=== PATIENT | female | born 1975 | race Caucasian/White ===

== ENCOUNTER 2016-07-06 21:22 | Emergency (ER) | payer OTHER ==
[~2016-07-06] VITALS: Ht 152.4 cm; Wt 96.4 kg
[~2016-07-06 21:22] MED LIST: ALBU1AER9 INH; BUPR100T8 PO; BUPR200T2 PO; DTR5 PO; GLC/500 PO; HYDR1CAP85 PO; IBUP-1428 PO; METO50TA16 PO; MOME200A INH; OXCA300T2 PO; TRAZ50TA35 PO
[2016-07-06 21:28] VITALS: TEMP 36.8; Ht 152.4 cm; Wt 96.4 kg
[2016-07-06] MEDS ORDERED: VNTHFA/IN INH (22:48)
[2016-07-06] MEDS ORDERED: NAPR-1169 PO (23:30)
--- NOTE | 2016-07-06 23:31 | EMERGENCY ROOM VISIT NOTE ---
ED Visit Note First contact with patient: 22:19 CHIEF COMPLAINT: Shoulder pain HISTORY OF PRESENT ILLNESS: This 40-year-old female patient presents to the emergency department ambulatory complaining of pain in the right shoulder which has been gradually increasing over the past 2 weeks. She states that the pain began to radiate toward her neck last night. There is limitation of motion of the arm because of the pain. The pain is moderate, constant and increases with motion of the hand and arm. The patient states the pain is sharp and 7/10. The patient has taken no medications for relief of the pain. No previous significant previous shoulder disease or injury. No numbness or tingling. No neck or back pain. No chest pain or shortness of breath. No abdominal pain or nausea/vomiting. No cough. REVIEW OF SYSTEMS: A 6 system review of systems was performed with positives and pertinent negatives in the HPI. ALLERGIES: Azithromycin, propoxyphene MEDICATIONS: See med list PMH: Diabetes, asthma SOCIAL HISTORY: The patient lives locally with family. Nonsmoker. PHYSICAL EXAM: Vital Signs: Reviewed nurse's notes, vital signs stable. GENERAL : This is a 40-year-old female, in no acute distress, but appears to be in pain , well-developed, well-nourished. MUSCULOSKELETAL: There is in no deformity in the contour of the right shoulder and there are no aureliano deformities noted. There is no sulcus sign. There is tenderness over the superior shoulder and right trapezius muscle. The patient's range of motion is for. Supraspinatus strength 5/5. There is no clavicle tenderness. No tenderness of the humerus, elbow, wrist, or hand. Fuse Spooler strength 5/5. Radial pulse 2+. NECK: No tenderness to palpation over the cervical spine. HEART: Regular rate and rhythm without murmurs gallops or rubs. LUNGS: Clear to auscultation bilaterally without wheezes, rales or rhonchi. No accessory muscle use. No retractions. NEURO: The patient is alert and oriented to person, place, and time. Normal sensation to light and sharp touch. Capillary refill less than 2 seconds. EMERGENCY DEPARTMENT COURSE: I examined the patient. An X-ray of the right shoulder was reviewed by myself and radiology and shows no acute findings. Conservative measures were discussed. The patient will follow-up with her primary care provider or orthopedics for further evaluation of her shoulder pain. She verbalized understanding of my assessment and treatment plan and was discharged home in good condition. DIAGNOSIS: Shoulder pain Problem List Medical Problems: (1) Depression Status: Chronic (2) Headache Status: Resolved (3) HTN (hypertension) Status: Chronic (4) HTN (hypertension) Status: Resolved (5) Pneumonia Status: Chronic Current/Historical Medications Scheduled Bupropion (Wellbutrin Sr), 200 MG PO QAM Bupropion (Wellbutrin Sr), 100 MG PO DAILY Hydroxyzine Pamoate (Vistaril), 25 MG PO TID Metformin Hcl (Glucophage), 1,000 MG PO AMPM Metoprolol Tartrate (Lopressor) (Lopressor), 50 MG PO BID Naproxen (Naprosyn), 500 MG PO DAILY Oxcarbazepine (Trileptal), 300 MG PO BID Oxybutynin Chloride (Oxybutynin Chloride), 5 MG PO DAILY Trazodone Hcl (Trazodone), 100 MG PO HS Scheduled PRN Albuterol Hfa (Ventolin Hfa), 2 PUFFS INH Q4 PRN for Shortness of Breath Ibuprofen (Motrin), 800 MG PO Q8 PRN for Headache Mometasone Furoate-Formoterol (Dulera 200/5 Mcg), 2 PUFFS INH BID PRN for Shortness of Breath Allergies Coded Allergies: Azithromycin (Verified Allergy, Unknown, 05/12/16) Propoxyphene (Verified Allergy, Unknown, 05/12/16) Vital Signs Date Time Temp Pulse Resp B/P Pulse Ox O2 Delivery O2 Flow Rate FiO2 07/06/16 23:42 96 18 144/107 98 07/06/16 21:28 36.8 105 18 148/104 96 Room Air Departure Information Impression Primary Impression: Right shoulder pain Dispostion Home / Self-Care Condition GOOD Prescriptions Naproxen (Naprosyn) 500 Mg Tab 500 MG PO DAILY for 14 Days, #14 TAB Prov: Ping Shipman .GUTIERREZ 07/06/16 Referrals Warren White M.D. (PCP) Patient Instructions My [facility] Additional Instructions You have been treated in the Emergency Department for Shoulder Pain. Take the Naprosyn as prescribed. For pain control, you can use the following [id number] medicines (if >12 yo): - Regular strength (325mg/tab) Tylenol (acetaminophen) 2 tabs every 4-6 hours as needed. Do not exceed 12 tablets in a 24 hour period. Avoid taking more than 4 grams (4000 mg) of Tylenol per day. This includes any other sources of acetaminophen you may take on a regular basis. If this is a recent injury (<24 hrs), ice can be applied to the area of pain for the first 3 days to help decrease pain and inflammation. Follow-up with your primary care provider in 1-2 weeks. Return to the Emergency Department if your current symptoms worsen despite treatment course outlined above, or if you develop any of the following symptoms : intractable pain despite aforementioned treatment course or new onset of numbness or tingling of the arm. Problem Qualifiers Primary Impression: Right shoulder pain Chronicity: chronic Qualified Codes: M25.511 - Pain in right shoulder; G89.29 - Other chronic pain
[2016-07-06 23:42] VITALS: BP 144/107; PULSE 96; O2SAT 98
--- NOTE | 2016-07-07 06:45 | DIAGNOSTIC IMAGING REPORT ---
RIGHT SHOULDER MIN 2 VIEWS ROUTINE CLINICAL HISTORY: Right shoulder pain. COMPARISON: None FINDINGS: Alignment of the right shoulder is anatomic. There is no acute fracture or suspicious osseous lesion. There is mild AC joint arthrosis. IMPRESSION: 1. Mild right AC joint arthrosis. 2. No fracture or dislocation of the right shoulder. Electronically signed by: Chintan Cedillo M.D. 07/07/2016 6:44 AM Dictated Date/Time: 07/07/2016 6:44 AM
== END 2016-07-06 23:43 | disposition home or self-care (01) ==
LOC: C.EDB 21:23 → C.EDD 23:43
DX: M25.511 Pain in right shoulder (principal); E11.9 Type 2 diabetes mellitus without complications; I10 Essential (primary) hypertension; J45.909 Unspecified asthma, uncomplicated; F32.9 Major depressive disorder, single episode, unspecified; Z79.84 Long term (current) use of oral hypoglycemic drugs; Z79.899 Other long term (current) drug therapy; Z88.1 Allergy status to other antibiotic agents; Z88.8 Allergy status to other drugs, medicaments and biological substances

== ENCOUNTER → 2016-07-15 | Outpatient (CLI) | payer OTHER ==
[~2016-07-15] MED LIST changes: -ALBU1AER9 INH; +CYCL10TA6 PO; +LEVO-366 PO; +NAPR-1169 PO; +PRED20TA2 PO; +TRAZ100T29 PO; +VNTHFA/IN INH
--- NOTE | 2016-07-15 13:06 | DIAGNOSTIC IMAGING REPORT ---
RIGHT LOWER EXTREMITY VENOUS DOPPLER HISTORY: Right leg pain and swelling. COMPARISON STUDY: None. FINDINGS: There is normal compressibility, flow, and augmentation within the right lower extremity deep venous system. IMPRESSION: No DVT within the right lower extremity Electronically signed by: Neto Wolf M.D. 07/15/2016 1:04 PM Dictated Date/Time: 07/15/2016 1:04 PM
== END | disposition home or self-care (01) ==
LOC: C.ULTR 12:20
PROVIDERS: ATTEND Internal Medicine
DX: M79.89 Other specified soft tissue disorders (principal)

== ENCOUNTER → 2016-07-26 | Outpatient (CLI) | payer OTHER ==
--- NOTE | 2016-07-26 14:08 | DIAGNOSTIC IMAGING REPORT ---
NUCLEAR BONE SCAN OF THE ANKLES CLINICAL HISTORY: Right ankle pain. COMPARISON STUDY: Radiographs of the right ankle dated 05/12/2016. TECHNIQUE: Nuclear bone scan of the ankles is performed at 3 following the IV administration of 25.6 mCi of technetium 99m MDP. Static images were acquired in multiple obliquities. FINDINGS: There is nonspecific activity identified in both ankles, right greater than left. This may be related to degenerative change. No focally abnormal activity is seen to suggest fracture. IMPRESSION: Nonspecific activity is identified in both ankles, right greater than left. See above. Electronically signed by: Ivan Burgos M.D. 07/26/2016 2:02 PM Dictated Date/Time: 07/26/2016 1:58 PM
== END | disposition home or self-care (01) ==
LOC: C.NUCL 10:00
PROVIDERS: ATTEND Internal Medicine
DX: M25.571 Pain in right ankle and joints of right foot (principal)

== ENCOUNTER 2016-08-17 16:58 | Emergency (ER) | payer OTHER ==
[~2016-08-17] VITALS: Ht 152.4 cm; Wt 91.0 kg
[~2016-08-17 16:58] MED LIST changes: -CYCL10TA6 PO; -LEVO-366 PO; -NAPR-1169 PO; -PRED20TA2 PO; -TRAZ100T29 PO
[2016-08-17 17:08] VITALS: BP 168/116; PULSE 95; TEMP 36.4; O2SAT 98; Ht 152.4 cm; Wt 91.0 kg
[2016-08-17] MEDS ORDERED: NAPR-1169 PO (17:10)
--- NOTE | 2016-08-17 17:32 | DIAGNOSTIC IMAGING REPORT ---
LEFT ANKLE 3 VIEWS HISTORY: l ANKLE INJURY/PAIN COMPARISON: None. FINDINGS: There is no fracture or dislocation. Lateral soft tissue swelling. Plantar heel spur. No radiopaque foreign bodies. IMPRESSION: No fractures. Electronically signed by: Neto Wolf M.D. 08/17/2016 5:30 PM Dictated Date/Time: 08/17/2016 5:30 PM
--- NOTE | 2016-08-17 17:44 | EMERGENCY ROOM VISIT NOTE ---
History First contact with patient: 17:03 Chief Complaint: ANKLE PAIN Stated Complaint: ANKLE PAIN History of Present Illness The patient is a 40 year old female who presents to the Emergency Room with complaints of left ankle injury and right knee abrasion after she twisted her ankle and fell this injury happened less than one hour prior to arrival. The patient presents to the emergency department via ambulance for evaluation. She rates her discomfort an 8 out of 10 with weightbearing. She reports a recent right ankle sprain. She currently denies any pain extending into the left foot or leg. She denies any paresthesias or numbness the left foot or toes. She reports scraping her right knee as well, but denies any right knee pain with ambulation. Tetanus immunization is up-to-date. Review of Systems 10 system review was performed and was negative except for pertinent positives and negatives as indicated in history of present illness Past Medical/Surgical History Medical Problems: (1) Depression (2) Headache (3) HTN (hypertension) (4) HTN (hypertension) (5) Pneumonia Family History Hypertension Seizures Social History Smoking Status: Former Smoker Alcohol Use: none Marital Status: Housing Status: lives with family Occupation Status: disabled Current/Historical Medications Scheduled Bupropion (Wellbutrin Sr), 200 MG PO QAM Bupropion (Wellbutrin Sr), 100 MG PO QAM Hydroxyzine Pamoate (Vistaril), 25 MG PO TID Metformin Hcl (Glucophage), 1,000 MG PO AMPM Metoprolol Tartrate (Lopressor) (Lopressor), 50 MG PO BID Naproxen (Naprosyn), 500 MG PO BID Oxcarbazepine (Trileptal), 300 MG PO BID Oxybutynin Chloride (Oxybutynin Chloride), 5 MG PO DAILY Trazodone Hcl (Trazodone), 100 MG PO HS Scheduled PRN Albuterol Hfa (Ventolin Hfa), 2 PUFFS INH Q4 PRN for Shortness of Breath Ibuprofen (Motrin), 800 MG PO Q8 PRN for Headache Mometasone Furoate-Formoterol (Dulera 200/5 Mcg), 2 PUFFS INH BID PRN for Shortness of Breath Allergies Coded Allergies: Azithromycin (Verified Allergy, Unknown, 08/17/16) Propoxyphene (Verified Allergy, Unknown, 3/21/17) Physical Exam Vital Signs Date Time Temp Pulse Resp B/P Pulse Ox O2 Delivery O2 Flow Rate FiO2 08/17/16 17:08 36.4 95 20 168/116 98 Room Air Physical Exam CONSTITUTIONAL: Healthy and well nourished. Alert and oriented X 3 with positive affect. She does not appear in any acute distress. HEENT: Normocephalic, atraumatic. Pupils equal, round and reactive. NECK: Full active range of motion without discomfort. RESPIRATORY: Clear to auscultation bilaterally with no wheezing, crackles, rhonchi or stridor. CARDIOVASCULAR: Regular rate and rhythm with no murmurs, rubs or gallops. MUSCULOSKELETAL: Examination of the left ankle shows minimal lateral edema without ecchymosis or skin wounds. She is tender over the lateral malleolus and ligaments. Minimal tenderness over the deltoid ligament. Negative anterior draw. No focal tenderness over the dorsal midfoot, metatarsals, phalanges, calcaneus or Achilles tendon. Pedal pulses are intact. INTEGUMENTARY: No rash or other significant dermatologic conditions noted. NEUROLOGIC: Left foot and toes are sensory intact. Medical Decision & Procedures ER Provider Diagnostic Interpretation: My interpretation of left ankle x-rays does not show any acute fracture, dislocation or ankle mortise asymmetry. Radiologist report is as follows: LEFT ANKLE 3 VIEWS HISTORY: l ANKLE INJURY/PAIN COMPARISON: None. FINDINGS: There is no fracture or dislocation. Lateral soft tissue swelling. Plantar heel spur. No radiopaque foreign bodies. IMPRESSION: No fractures. ED Course Patient history and physical exam were performed. Nurse's notes were reviewed. X-rays of the left ankle were normal. The patient was fitted with crutches. She was encouraged to intermittently apply ice to the ankle, and perform range of motion exercises to prevent stiffness. Ibuprofen and/or Tylenol as needed for pain. She was also instructed to keep her right knee wound clean and covered with an antibiotic ointment and dressing until it heals. The patient was happy with plan of care, voiced understanding of all discharge instructions , and rated her pain a 3 out of 10 at the conclusion of my exam. Medical Decision Impression Primary Impression: Left ankle sprain Additional Impression: Abrasion, right knee, initial encounter Departure Information Dispostion Home / Self-Care Forms HOME CARE DOCUMENTATION FORM, IMPORTANT VISIT INFORMATION Patient Instructions My [facility] Additional Instructions Intermittently apply ice and elevate ankle for swelling and pain. Perform range of motion exercises to prevent stiffness. Use crutches as needed - no limping. Ibuprofen or Tylenol as needed for pain. Follow-up with orthopedics if symptoms are not improving within the next week. Problem Qualifiers Primary Impression: Left ankle sprain Encounter type: initial encounter Involved ligament of ankle: unspecified ligament Qualified Codes: S93.402A - Sprain of unspecified ligament of left ankle, initial encounter
== END 2016-08-17 17:35 | disposition home or self-care (01) ==
LOC: EDBD 16:58 → C.EDD 17:01
DX: S93.402A Sprain of unspecified ligament of left ankle, initial encounter (principal); S80.211A Abrasion, right knee, initial encounter; W19.XXXA Unspecified fall, initial encounter; I10 Essential (primary) hypertension; Z82.49 Family history of ischemic heart disease and other diseases of the circulatory system; Z82.3 Family history of stroke; Z87.891 Personal history of nicotine dependence; F32.9 Major depressive disorder, single episode, unspecified

== ENCOUNTER 2017-01-10 15:47 | Emergency (ER) | payer OTHER ==
[~2017-01-10] VITALS: Ht 152.4 cm; Wt 100.5 kg
[~2017-01-10 15:47] MED LIST changes: +NAPR-1169 PO
[2017-01-10 15:51] VITALS: TEMP 36.8; Ht 152.4 cm; Wt 100.5 kg
[2017-01-10] MEDS ORDERED: ACETAMINOPHEN 500 MG TAB PO STA (16:06)
--- NOTE | 2017-01-10 16:35 | DIAGNOSTIC IMAGING REPORT ---
LEFT RIBS UNILATERAL WITH PA CHEST (5 views) CLINICAL HISTORY: Left rib pain COMPARISON STUDY: No previous studies for comparison. FINDINGS: The erect chest reveals a calcified granuloma within the right mid to lower lung zone. There is no pneumothorax. There is no focal pulmonary consolidation. No left-sided rib fractures are visualized. No destructive lesions are visualized on conventional radiographic imaging. IMPRESSION: 1. No evidence of pneumothorax 2. No left-sided rib fractures identified 3. No evidence of focal pulmonary consolidation Electronically signed by: Js Hauser M.D. 01/10/2017 4:33 PM Dictated Date/Time: 01/10/2017 4:32 PM
[2017-01-10 16:45] LABS: MANUAL MICROSCOPIC REQUIRED? NO; REVIEW REQ? NO; URINE APPEARANCE TURBID (CLEAR); URINE BILIRUBIN NEG (NEG); URINE COLOR YELLOW; URINE EPITHELIAL CELL AUTO >30 /lpf (0-5); URINE NITRITE NEG (NEG); URINE SPECIFIC GRAVITY 1.024 (1.000-1.030); UROBILINOGEN NEG (NEG); ZZUR CULT IF INDIC CLEAN CATCH YES
[2017-01-10] MEDS ORDERED: CYCL10TA6 PO (16:59)
--- NOTE | 2017-01-10 16:59 | EMERGENCY ROOM VISIT NOTE ---
History First contact with patient: 15:55 Chief Complaint: FLANK PAIN Stated Complaint: LEFT SIDE OF PAIN AND PAIN IN LEFT ANKLE History of Present Illness The patient is a 41 year old female who presents to the Emergency Room with complaints of left posterior rib pain. The patient states the pain started this morning. She states it hurts worse with deep inspiration. The patient denies any known injury to the area. The patient denies any chest pain or shortness of breath. The patient denies any nausea or vomiting. The patient denies any urinary symptoms of frequency, urgency, dysuria or hematuria. The patient does admit to a history of pyelonephritis. She denies any history of kidney stones. She has not taken anything for pain. The patient also mentioned that she has had chronic left ankle pain for 6 months. She was initially seen here in the emergency room and followed up with Dr. Wallace. She denies any new injury to her ankle. She has not returned to Dr. Wallace for further evaluation. Review of Systems 10 system review was performed and was negative unless stated otherwise history of present illness. Past Medical/Surgical History Medical Problems: (1) Depression (2) Headache (3) HTN (hypertension) (4) HTN (hypertension) (5) Pneumonia Family History Hypertension Seizures Social History Smoking Status: Former Smoker Alcohol Use: none Marital Status: Housing Status: lives with family Occupation Status: disabled Current/Historical Medications Scheduled Bupropion (Wellbutrin Sr), 200 MG PO QAM Bupropion (Wellbutrin Sr), 100 MG PO QAM Hydroxyzine Pamoate (Vistaril), 25 MG PO TID Metformin Hcl (Glucophage), 1,000 MG PO AMPM Metoprolol Tartrate (Lopressor) (Lopressor), 50 MG PO BID Naproxen (Naprosyn), 500 MG PO BID Oxcarbazepine (Trileptal), 300 MG PO BID Oxybutynin Chloride (Oxybutynin Chloride), 5 MG PO DAILY Trazodone Hcl (Trazodone), 100 MG PO HS Scheduled PRN Albuterol Hfa (Ventolin Hfa), 2 PUFFS INH Q4 PRN for Shortness of Breath Ibuprofen (Motrin), 800 MG PO Q8 PRN for Headache Mometasone Furoate-Formoterol (Dulera 200/5 Mcg), 2 PUFFS INH BID PRN for Shortness of Breath Physical Exam Vital Signs Date Time Temp Pulse Resp B/P (MAP) Pulse Ox O2 Delivery O2 Flow Rate FiO2 01/10/17 15:51 36.8 105 18 174/114 95 Room Air Physical Exam GENERAL: 41-year-old obese white female appears in no acute distress. MENTAL Status: Alert and oriented 3. LUNGS: Clear auscultation without wheezes rales or rhonchi. CARDIAC: Regular rate and rhythm without murmur. Pulses is full and equal throughout. CHEST WALL: No gross bony deformity noted. No erythema or edema noted. The patient is tender to palpation over the mid to lower posterior chest wall remainder chest wall is unremarkable. BACK: No CVA tenderness noted. ABDOMEN: Positive bowel sounds all 4 quadrants. Soft, nontender to palpation . Cannot evaluate for organomegaly or masses secondary to patient's size. LEFT ANKLE: No gross bony deformity noted. No erythema or edema noted. No ligament instability noted. Full range of motion. Medical Decision & Procedures ER Provider Diagnostic Interpretation: LEFT RIBS UNILATERAL WITH PA CHEST (5 views) CLINICAL HISTORY: Left rib pain COMPARISON STUDY: No previous studies for comparison. FINDINGS: The erect chest reveals a calcified granuloma within the right mid to lower lung zone. There is no pneumothorax. There is no focal pulmonary consolidation. No left-sided rib fractures are visualized. No destructive lesions are visualized on conventional radiographic imaging. IMPRESSION: 1. No evidence of pneumothorax 2. No left-sided rib fractures identified 3. No evidence of focal pulmonary consolidation Electronically signed by: Js Hauser M.D. 01/10/2017 4:33 PM Dictated Date/Time: 01/10/2017 4:32 PM Laboratory Results Test 01/10/17 16:20 Urine Color YELLOW Urine Appearance TURBID (CLEAR) Urine pH 5.0 (4.5-7.5) Urine Specific [place] 1.024 (1.000-1.030) Urine Protein 1+ (NEG) Urine Glucose (UA) 2+ (NEG) Urine Ketones 1+ (NEG) Urine Occult Blood 3+ (NEG) Urine Nitrite NEG (NEG) Urine Bilirubin NEG (NEG) Urine Urobilinogen NEG (NEG) Urine Leukocyte Esterase TRACE (NEG) Urine WBC (Auto) 10-30 /hpf (0-5) Urine RBC (Auto) >30 /hpf (0-4) Urine Hyaline Casts (Auto) 1-5 /lpf (0-5) Urine Epithelial Cells (Auto) >30 /lpf (0-5) Urine Bacteria (Auto) 1+ (NEG) Medications Administered Medications (Trade) Dose Ordered Sig/Neema Route Start Time Stop Time Status Last Admin Dose Admin Acetaminophen (Tylenol Tab) 1,000 mg NOW STAT PO 01/10/17 16:06 01/10/17 16:07 DC 01/10/17 16:17 1,000 MG ED Course The patient was evaluated. The patient's EMR medication list were reviewed. The patient was given Tylenol 1 g by mouth for pain. Urinalysis was ordered. Left rib x-ray was ordered and interpreted by the radiologist and myself as above without any acute findings. Urinalysis revealed positive blood but the patient has her menses. It also showed a trace of leukocytes and bacteria but there was a lot of epithelial cells. We will await culture for treatment. The patient was informed of all findings and discharged home in stable condition.. Medical Decision Differential diagnosis include acute bronchitis, pneumonia, muscular strain, pyelonephritis, UTI [place] Drug Monitoring Program Search Results: patient reviewed within database Medication Reconcilliation Current Medication List: was personally reviewed by mo Blood Pressure Screening Patient's blood pressure: Elevated blood pressure Blood pressure disposition: Referred to PCP Impression Primary Impression: Chest wall muscle strain Additional Impressions: HTN (hypertension) Chronic pain of left ankle Departure Information Dispostion Home / Self-Care Condition GOOD Prescriptions Cyclobenzaprine Hcl (FLEXERIL) 10 Mg Tab 10 MG PO TID for 5 Days, #15 TAB Prov: Cyndee Chaudhry, PA-C 01/10/17 Referrals Warren White M.D. (PCP) Neeraj Wallace M.D. Forms HOME CARE DOCUMENTATION FORM, IMPORTANT VISIT INFORMATION Patient Instructions My [facility] Additional Instructions Ibuprofen 600 mg every 6 hours with food for pain. Take Flexeril as prescribed. Avoid any heavy lifting until pain resolves. Call in 36 hours for urine culture results. Recommend follow-up with Dr. Wallace for your chronic ankle pain. Recommend follow-up with your PCP for elevated blood pressure at today's ER visit. Problem Qualifiers
[2017-01-10 17:08] VITALS: BP 164/116; PULSE 98; O2SAT 94
== END 2017-01-10 17:19 | disposition home or self-care (01) ==
LOC: C.EDB 15:48 → C.EDC 17:19
DX: S29.011A Strain of muscle and tendon of front wall of thorax, initial encounter (principal); X58.XXXA Exposure to other specified factors, initial encounter; I10 Essential (primary) hypertension; M25.572 Pain in left ankle and joints of left foot; F32.9 Major depressive disorder, single episode, unspecified; Z87.891 Personal history of nicotine dependence; Z79.84 Long term (current) use of oral hypoglycemic drugs; Z79.899 Other long term (current) drug therapy; Z82.49 Family history of ischemic heart disease and other diseases of the circulatory system; Z82.0 Family history of epilepsy and other diseases of the nervous system

== ENCOUNTER 2017-02-03 19:04 | Emergency (ER) | payer OTHER ==
[~2017-02-03] VITALS: Ht 152.4 cm; Wt 100.4 kg
[~2017-02-03 19:04] MED LIST changes: -BUPR100T8 PO; -DTR5 PO
[2017-02-03 19:08] VITALS: TEMP 36.7
[2017-02-03] MEDS ORDERED: METHYLPREDNISOLONE 125 MG VIAL IV STA (19:20)
[2017-02-03] MEDS ORDERED: ALBUT/IPRATROP 3MG/0.5MG NEB 3 ML VIAL INH STA (19:20)
[2017-02-03] MEDS ORDERED: TRAZ100T29 PO (19:30)
[2017-02-03 19:57] VITALS: O2SAT 96
[2017-02-03 20:07] VITALS: Ht 152.4 cm; Wt 100.4 kg
[2017-02-03 20:08] LABS: BASO % 0.4 %; BASO ABS # 0.03 K/uL (0-0.2); COMPLETE YES; HEMATOCRIT 41.5 % (37-47); IG% 0.3 %; MEAN CELL VOLUME 84.7 fL (80-100); MEAN CORPUSCULAR HEMOGLOBIN 28.6 pg (25-34); MEAN CORPUSCULAR HGB CONC 33.7 g/dl (32-36); MEAN PLATELET VOLUME 9.5 fL (7.4-10.4); MONO % 7.9 %; NEUT % 57.4 %; PLATELET COUNT 259 K/uL (130-400); WHITE BLOOD COUNT 7.82 K/uL (4.8-10.8)
--- NOTE | 2017-02-03 20:16 | DIAGNOSTIC IMAGING REPORT ---
CHEST ONE VIEW PORTABLE HISTORY: EVALUATE RESPIRATORY DISTRESS.DYSPNEA COMPARISON: Chest 07/07/2014. FINDINGS: There are low lung volumes. The cardiac silhouette is mildly enlarged. No evidence for pulmonary edema. No pleural effusions. No pneumothorax. Mild central pulmonary vascular congestion. IMPRESSION: The cardiac silhouette is mildly enlarged and there is mild central pulmonary vascular congestion without overt edema. Electronically signed by: Neto Wolf M.D. 02/03/2017 8:15 PM Dictated Date/Time: 02/03/2017 8:12 PM
[2017-02-03 20:25] LABS: ALT/SGPT 40 U/L (12-78); BLOOD UREA NITROGEN 13 mg/dl (7-18); BUN/CREATININE RATIO 14.8 (10-20); CALCIUM 8.6 mg/dl (8.5-10.1); CARBON DIOXIDE 27 mmol/L (21-32); CHLORIDE 104 mmol/L (98-107); CREATININE 0.86 mg/dl (0.60-1.20); GLUCOSE 145 mg/dl (70-99); POTASSIUM 3.8 mmol/L (3.5-5.1); SODIUM 138 mmol/L (136-145)
[2017-02-03 20:29] LABS: INR 0.9 (0.9-1.1); PARTIAL THROMBOPLASTIN RATIO 0.9; PROTHROMBIN TIME (PATIENT) 9.5 SECONDS (9.0-12.0)
[2017-02-03 20:30] LABS: ALB/GLOB RATIO 0.9 (0.9-2); ALKALINE PHOSPHATASE 77 U/L (45-117); AST/SGOT 38 U/L (15-37)
[2017-02-03] MEDS ORDERED: ALBUTEROL 0.083% NEBU SOLN 3 ML VIAL INH STA (20:52)
[2017-02-03] MEDS ORDERED: LEVOFLOXACIN 250 MG TAB PO ONE (21:00)
[2017-02-03] MEDS ORDERED: PRED20TA2 PO (22:41)
[2017-02-03] MEDS ORDERED: LEVO-366 PO (22:41)
[2017-02-03 22:58] VITALS: BP 180/117; PULSE 107; O2SAT 96
--- NOTE | 2017-02-03 23:21 | EMERGENCY ROOM VISIT NOTE ---
History Report prepared by Christian: Meagan Mcconnell Under the Supervision of: Dr. Tunde Zavala D.O. First contact with patient: 19:12 Chief Complaint: SORETHROAT Stated Complaint: SORE THROAT, CHEST HURTS, COUGH History of Present Illness The patient is a 41 year old female who presents to the Emergency Room with complaints of persistent sore throat starting 2 days ago. Her symptoms began with the sore throat 2 days ago. Then she developed a nonproductive cough yesterday. Last night, she started having chest pain. She describes it as an pressure in the middle of her chest. The pain worsens and is reproducible when she pushes on her chest. She called her PCP and was just told to take 2 Tylenol. The chest pain mostly present with coughing and worse with coughing. She has a history of asthma and does use and inhaler. She has gotten coughing with her asthma exacerbations before, but not chest pain. She has used her inhaler which helps with the coughing and breathing, but not with the chest pain. She denies any arm pain, jaw pain, hemoptysis, no history of cancer or calf swelling. She denies any sick contacts. She denies any recent steroid or antibiotic use. She denies any history of blood clots. She denies any recent trips or surgeries. She denies any history of heart disease. She does not smoke. She has a history of diabetes and hypertension. She denies any other medical problems. Source of History: patient Onset: 2 days ago Position: throat Quality: other (sore) Timing: other (persistent) Associated Symptoms: + cough, + chest pain Note: Pt denies arm pain, jaw pain, hemoptysis, calf swelling. Review of Systems See HPI for pertinent positives & negatives. A total of 10 systems reviewed and were otherwise negative. Past Medical & Surgical Medical Problems: (1) Depression (2) Headache (3) HTN (hypertension) (4) HTN (hypertension) (5) Pneumonia Family History Hypertension Seizures Social History Smoking Status: Never Smoker Alcohol Use: none Marital Status: Housing Status: lives with family Occupation Status: disabled Current/Historical Medications Scheduled Bupropion (Wellbutrin Sr), 200 MG PO QAM Hydroxyzine Pamoate (Vistaril), 25 MG PO TID Levofloxacin (Levaquin), 500 MG PO DAILY Metformin Hcl (Glucophage), 1,000 MG PO AMPM Metoprolol Tartrate (Lopressor) (Lopressor), 50 MG PO BID Naproxen (Naprosyn), 500 MG PO BID Oxcarbazepine (Trileptal), 300 MG PO BID Prednisone (Prednisone Tab), 2 TAB PO DAILY Trazodone Hcl (Trazodone), 100 MG PO HS Scheduled PRN Albuterol Hfa (Ventolin Hfa), 2 PUFFS INH Q4 PRN for Shortness of Breath Ibuprofen (Motrin), 800 MG PO Q8 PRN for Headache Mometasone Furoate-Formoterol (Dulera 200/5 Mcg), 2 PUFFS INH BID PRN for Shortness of Breath Allergies Coded Allergies: Azithromycin (Verified Allergy, Unknown, 08/17/16) Propoxyphene (Verified Allergy, Unknown, 08/17/16) Physical Exam Vital Signs Date Time Temp Pulse Resp B/P (MAP) Pulse Ox O2 Delivery O2 Flow Rate FiO2 02/03/17 22:58 107 16 180/117 96 Room Air 02/03/17 20:31 110 02/03/17 19:57 96 Room Air Mask 02/03/17 19:55 96 Mask 02/03/17 19:08 36.7 116 20 156/98 94 Room Air Physical Exam GENERAL: sitting up in bed, obese, no acute distress, talking in full sentences. EYE EXAM: normal conjunctiva OROPHARYNX: no exudate, no erythema, lips, buccal mucosa, and tongue normal and mucous membranes are moist NECK: supple, no nuchal rigidity, no adenopathy, non-tender, no JVD CHEST: Reproducible anterior chest wall pain. LUNGS: Faint wheezes bilaterally. Normal chest wall mechanics HEART: no murmurs, S1 normal and S2 normal ABDOMEN: abdomen soft, non-tender, normo-active bowel sounds, no masses, no rebound or guarding. BACK: Back is symmetrical on inspection and there is no deformity, no midline tenderness, no CVA tenderness. SKIN: no rashes and no bruising UPPER EXTREMITIES: upper extremities are grossly normal. LOWER EXTREMITIES: Calves equal bilaterally. NEURO EXAM: Normal sensorium, cranial nerves II-XII grossly intact, normal speech, no gross weakness of arms, no gross weakness of legs. Medical Decision & Procedures ER Provider Diagnostic Interpretation: Radiology results as stated below per my review and the radiologist's interpretation: CHEST ONE VIEW PORTABLE HISTORY: EVALUATE RESPIRATORY DISTRESS.DYSPNEA COMPARISON: Chest 07/07/2014. FINDINGS: There are low lung volumes. The cardiac silhouette is mildly enlarged. No evidence for pulmonary edema. No pleural effusions. No pneumothorax. Mild central pulmonary vascular congestion. IMPRESSION: The cardiac silhouette is mildly enlarged and there is mild central pulmonary vascular congestion without overt edema. Electronically signed by: Neto Wolf M.D. 02/03/2017 8:15 PM Dictated Date/Time: 02/03/2017 8:12 PM Laboratory Results 02/03/17 20:00 Red Blood Count 4.90, Mean Corpuscular Volume 84.7, Mean Corpuscular Hemoglobin 28.6, Mean Corpuscular Hemoglobin Concent 33.7, Mean Platelet Volume 9.5, Neutrophils (%) (Auto) 57.4, Lymphocytes (%) (Auto) 32.0, Monocytes (%) (Auto) 7.9, Eosinophils (%) (Auto) 2.0, Basophils (%) (Auto) 0.4, Neutrophils # (Auto) 4.49, Lymphocytes # (Auto) 2.50, Monocytes # (Auto) 0.62, Eosinophils # (Auto) 0.16, Basophils # (Auto) 0.03 02/03/17 20:00 Test 02/03/17 20:00 02/03/17 21:58 White Blood Count 7.82 K/uL (4.8-10.8) Red Blood Count 4.90 M/uL (4.2-5.4) Hemoglobin 14.0 g/dL (12.0-16.0) Hematocrit 41.5 % (37-47) Mean Corpuscular Volume 84.7 fL (80-100) Mean Corpuscular Hemoglobin 28.6 pg (25-34) Mean Corpuscular Hemoglobin Concent 33.7 g/dl (32-36) Platelet Count 259 K/uL (130-400) Mean Platelet Volume 9.5 fL (7.4-10.4) Neutrophils (%) (Auto) 57.4 % Lymphocytes (%) (Auto) 32.0 % Monocytes (%) (Auto) 7.9 % Eosinophils (%) (Auto) 2.0 % Basophils (%) (Auto) 0.4 % Neutrophils # (Auto) 4.49 K/uL (1.4-6.5) Lymphocytes # (Auto) 2.50 K/uL (1.2-3.4) Monocytes # (Auto) 0.62 K/uL (0.11-0.59) Eosinophils # (Auto) 0.16 K/uL (0-0.5) Basophils # (Auto) 0.03 K/uL (0-0.2) RDW Standard Deviation 37.7 fL (36.4-46.3) RDW Coefficient of Variation 12.3 % (11.5-14.5) Immature Granulocyte % (Auto) 0.3 % Immature Granulocyte # (Auto) 0.02 K/uL (0.00-0.02) Prothrombin Time 9.5 SECONDS (9.0-12.0) Prothromb Time International Ratio 0.9 (0.9-1.1) Activated Partial Thromboplast Time 23.1 SECONDS (21.0-31.0) Partial Thromboplastin Ratio 0.9 D-Dimer 220 ug/L FEU (0-500) Anion Gap 7.0 mmol/L (3-11) Est Creatinine Clear Calc Drug Dose 89.8 ml/min Estimated GFR () 95.9 Estimated GFR (Non- 82.7 BUN/Creatinine Ratio 14.8 (10-20) Calcium Level 8.6 mg/dl (8.5-10.1) Total Bilirubin 0.3 mg/dl (0.2-1) Aspartate Amino Transf (AST/SGOT) 38 U/L (15-37) Alanine Aminotransferase (ALT/SGPT) 40 U/L (12-78) Alkaline Phosphatase 77 U/L (45-117) Total Protein 7.4 gm/dl (6.4-8.2) Albumin 3.6 gm/dl (3.4-5.0) Globulin 3.8 gm/dl (2.5-4.0) Albumin/Globulin Ratio 0.9 (0.9-2) Troponin I < 0.015 ng/ml (0-0.045) Laboratory results per my review. Medications Administered Medications (Trade) Dose Ordered Sig/Neema Route Start Time Stop Time Status Last Admin Dose Admin Methylprednisolone Sodium Succinate (Solu-Medrol IV) 125 mg NOW STAT IV 02/03/17 19:20 02/03/17 19:22 DC 02/03/17 19:54 125 MG Albuterol/ Ipratropium (Duoneb) 3 ml NOW STAT INH 02/03/17 19:20 02/03/17 19:22 DC 02/03/17 19:54 3 ML Levofloxacin (Levaquin Tab) 750 mg NOW ONCE PO 02/03/17 21:00 02/03/17 21:01 DC 02/03/17 21:02 750 MG Albuterol Sulfate (Ventolin 0.083% 2.5MG/3ML Neb) 2.5 mg NOW STAT INH 02/03/17 20:52 02/03/17 20:53 DC 02/03/17 21:02 2.5 MG ECG Indication: chest pain Rate (beats per minute): 107 Rhythm: sinus tachycardia Findings: Q waves (Septal), other (normal axis, T wave flattening lateral) Comparison ECG Date: 07-Jul-2014 Change: Septal Q wave unchanged, T wave flattening new. ED Course ED COURSE: Vital signs were reviewed and showed tachycardia. The patients medical record was reviewed The above diagnostic studies were performed and reviewed. ED treatments and interventions as stated above. 1912: The patient was evaluated in room C5. A complete history and physical examination was performed. 1919: Duoneb 3 ml INH, Solu-Medrol IV 125 mg IV. 2041: I reevaluated the patient. She is feeling slightly better. 2051: Albuterol Sulfate 2.5 mg INH. 2099: Levofloxacin 750 mg PO. 2233: Upon reevaluation, the patient is feeling better. Her SOB is improved, the chest discomfort has completely resolved. She would like to go home. I discussed my findings with the patient and she understands and agrees with the treatment plan. Based on the patients age, coexisting illnesses, exam and lab findings the decision to treat as an outpatient was made. The patient remained stable while under my care. The patient appeared well at the time of discharge. 2239: Rapid strep was negative. Medical Decision Differential diagnoses includes but is not limited to pneumonia, bronchitis, COPD/Asthma exacerbation, pneumothorax, pulmonary embolism, congestive heart failure, acute coronary syndrome. Patient is a 41-year-old female who presents to ER for sore throat which is present for the past 2 days associated with a nonproductive cough, shortness of breath and chest pain. Strep throat has been present unchanged for the past 2 days. Rapid strep neg. Her nonproductive cough has been worsening because of shortness of breath. Her chest pain is mainly present with coughing. It is reproducible on exam. She does have a history of asthma and takes an inhaler for this. Patient notes that chest pain has been present since last night persistently. Labs were obtained. CBC able BMP, LFTs, bilirubin unremarkable. Troponins were negative 2 with chest pain that has been present for greater than 8 hours constantly. D-dimer was negative. She was given 2 neb treatments and consequently did become tachycardic. EKG shows faint T-wave flattening in the lateral leads which is not significantly different than previous EKGs. Chest x-ray shows no focal infiltrate. Her symptoms almost completely resolved with steroids, Levaquin and neb treatments. She had no chest pain or shortness of breath. She did still have a cough. With her reproducible anterior chest pain, negative troponin, negative d-dimer and symptoms nearly resolving following treatments; do favor this is respiratory. I did not believe that this is cardiac as it is not supported by troponins or history of present illness. Patient was covered for an exacerbation of her asthma secondary to acute bronchitis. She was given discharge instructions to follow-up with her PCP in 24 hours with the T-wave findings on EKG. Discussed with Pt concerning signs and symptoms to watch out for. Pt was instructed to follow up with their PCP and discussed with the patient their option to return to the ED at anytime for persistent or worsening symptoms. The appropriate anticipatory guidance and out-patient management, including indications for return to the emergency department, were explained at length to the patient and understood. Medication Reconcilliation Current Medication List: was personally reviewed by me Blood Pressure Screening Patient's blood pressure: Normal blood pressure Blood pressure disposition: Did not require urgent referral Impression Primary Impression: Asthma exacerbation Additional Impression: Acute bronchitis Scribe Attestation The scribe's documentation has been prepared under my direction and personally reviewed by me in its entirety. I confirm that the note above accurately reflects all work, treatment, procedures, and medical decision making performed by me. Departure Information Dispostion Home / Self-Care Prescriptions Prednisone (Prednisone Tab) 20 Mg Tab 2 TAB PO DAILY for 5 Days, TAB Prov: Tunde Zavala, DO 02/03/17 Levofloxacin (Levaquin) 500 Mg Tab 500 MG PO DAILY for 9 Days, TAB Prov: Tunde Zavala, DO 02/03/17 Referrals Malka Vergara PA Forms HOME CARE DOCUMENTATION FORM, IMPORTANT VISIT INFORMATION Patient Instructions Asthma - [facility], Bronchitis Acute, My [facility] Additional Instructions Please follow up with your primary care doctor with in the next 24 hours. Any worsening of your symptoms, please return to the ED immediately. This includes any fevers greater than 100.4, worsening pain, chest pain, shortness breath, persistent nausea, vomiting, unable to eat or drink, or any other concerning signs or symptoms from your standpoint. Please take steroids as prescribed. Please monitor your blood sugar appropriately/closely while taking the steroids. Please take antibiotics as prescribed. Please use your inhaler as needed. Problem Qualifiers Additional Impression: Acute bronchitis Bronchitis organism: unspecified organism Qualified Codes: J20.9 - Acute bronchitis, unspecified
== END 2017-02-03 22:58 | disposition home or self-care (01) ==
LOC: C.EDB 19:08 → C.EDC 22:58
DX: J45.909 Unspecified asthma, uncomplicated (principal); J20.9 Acute bronchitis, unspecified; F32.9 Major depressive disorder, single episode, unspecified; I10 Essential (primary) hypertension; Z82.49 Family history of ischemic heart disease and other diseases of the circulatory system; Z82.0 Family history of epilepsy and other diseases of the nervous system

== ENCOUNTER 2017-06-13 19:29 | Emergency (ER) | payer OTHER ==
[~2017-06-13] VITALS: Ht 152.4 cm; Wt 101.5 kg
[~2017-06-13 19:29] MED LIST changes: +TRAZ100T29 PO; -TRAZ50TA35 PO
[2017-06-13 19:36] VITALS: TEMP 36.7; Ht 152.4 cm; Wt 101.5 kg
[2017-06-13] MEDS ORDERED: KETOROLAC TROMETHAMINE 60 MG/2 ML VIAL IM STA (20:07)
--- NOTE | 2017-06-13 20:26 | EMERGENCY ROOM VISIT NOTE ---
History First contact with patient: 19:40 Chief Complaint: ELBOW PAIN/INJURY Stated Complaint: MIGRAINE, RT ELBOW PAIN History of Present Illness The patient is a 41 year old female who presents to the Emergency Room with complaints of right elbow pain and headache. The patient reports that she has had pain in her right elbow for the past 3 days. She denies any injury to the elbow. She states the pain is worse with movement. It is achy and she rates her discomfort an 8-9/10. There is no radiation of the pain. She denies any redness, warmth or swelling. The patient additionally reports that she has had a migraine headache for the past 3 days. She has a history of migraines and states this feels similar. She reports associated light sensitivity and nausea. She denies vomiting, blurred vision or slurred speech. She typically takes ibuprofen 800 mg for her migraines but states that she does not have any ibuprofen at home. She has taken Aleve without relief of her elbow pain or migraine. She denies any fevers/chills or recent illness. Review of Systems A complete 10 point review of systems was reviewed with the patient with pertinent positives and negatives as per history of present illness. All else were negative. Past Medical/Surgical History Medical Problems: (1) Depression (2) Headache (3) HTN (hypertension) (4) HTN (hypertension) (5) Pneumonia Family History Hypertension Seizures Social History Smoking Status: Never Smoker Alcohol Use: none Marital Status: Housing Status: lives with family Occupation Status: disabled Current/Historical Medications Scheduled Bupropion (Wellbutrin Sr), 200 MG PO QAM Hydroxyzine Pamoate (Vistaril), 25 MG PO TID Metformin Hcl (Glucophage), 1,000 MG PO AMPM Metoprolol Tartrate (Lopressor) (Lopressor), 50 MG PO BID Naproxen (Naprosyn), 500 MG PO BID Oxcarbazepine (Trileptal), 300 MG PO BID Trazodone Hcl (Trazodone), 100 MG PO HS Scheduled PRN Albuterol Hfa (Ventolin Hfa), 2 PUFFS INH Q4 PRN for Shortness of Breath Ibuprofen (Motrin), 800 MG PO Q8 PRN for Headache Mometasone Furoate-Formoterol (Dulera 200/5 Mcg), 2 PUFFS INH BID PRN for Shortness of Breath Physical Exam Vital Signs Date Time Temp Pulse Resp B/P (MAP) Pulse Ox O2 Delivery O2 Flow Rate FiO2 06/13/17 21:00 98 18 179/99 97 Room Air 06/13/17 19:36 36.7 108 22 181/107 97 Room Air Physical Exam VITALS: Vitals are noted on the nurse's note and reviewed by myself. Vital signs stable. GENERAL: This is a 41-year-old female, in no acute distress, nondiaphoretic, well-developed well-nourished. SKIN: The skin was without rashes. HEAD: Normocephalic atraumatic. EARS: External auditory canals clear, tympanic membranes pearly tony without erythema or effusion bilaterally. EYES: Pupils equal round and reactive to light and accommodation. Extraocular movements intact. MOUTH: Mucous membranes moist. Tonsils are not enlarged. Pharynx without erythema or exudate. NECK: Supple without nuchal rigidity. No lymphadenopathy. HEART: Regular rate and rhythm without murmurs gallops or rubs. LUNGS: Clear to auscultation bilaterally without wheezes, rales or rhonchi. MUSCULOSKELETAL: Tenderness to palpation in the general vicinity of the right olecranon process. There is no focal tenderness. There is full range of motion of elbow. There is no erythema, swelling or warmth. NEURO: Patient was alert and oriented to person place and time. Medical Decision & Procedures ER Provider Diagnostic Interpretation: R ELBOW MIN 3 VIEWS ROUTINE CLINICAL HISTORY: Right elbow pain COMPARISON: None. DISCUSSION: The fat pads are not displaced. No fractures or dislocations are visualized. There are no erosive or destructive changes. IMPRESSION: 1. No acute fractures 2. No evidence of erosive disease Medications Administered Medications (Trade) Dose Ordered Sig/Neema Route Start Time Stop Time Status Last Admin Dose Admin Ketorolac Tromethamine (Toradol Inj) 60 mg NOW STAT IM 06/13/17 20:07 06/13/17 20:08 DC 06/13/17 20:15 60 MG Medical Decision The differential diagnosis includes elbow fracture, tendinitis, olecranon bursitis, arthritis, acute intracranial bleed, meningitis, encephalitis, mass or mass effect, sinusitis, infection, tumor, headache, temporal arteritis and carbon monoxide exposure, and migraine. The patient is a 41-year-old female who presents today complaining of elbow pain and migraine headache. The patient is well-appearing. Her migraine is similar to previous she has had. X-ray of the elbow was obtained and showed no acute findings. Patient was given IM Toradol for her headache and elbow pain with some relief. Conservative measures were discussed including ice and ibuprofen use. She is instructed to follow-up with her primary care provider or orthopedics for further evaluation of her elbow pain. She verbalized understanding of my assessment and treatment plan and was discharged home in good condition. Medication Reconcilliation Current Medication List: was personally reviewed by me Blood Pressure Screening Patient's blood pressure: Elevated blood pressure Blood pressure disposition: Referred to PCP Impression Primary Impression: Elbow pain Additional Impression: Headache Departure Information Dispostion Home / Self-Care Condition GOOD Referrals No Doctor, Assigned (PCP) Neeraj Wallace M.D. Patient Instructions My [facility] Additional Instructions For pain control, you can use the following [id number] medicines (if >12 yo): - Regular strength (325mg/tab) Tylenol (acetaminophen) 2 tabs every 4-6 hours as needed. Do not exceed 12 tablets in a 24 hour period. Avoid taking more than 4 grams (4000 mg) of Tylenol per day. This includes any other sources of acetaminophen you may take on a regular basis. - Regular strength (200 mg/tab) Advil (ibuprofen) 1-2 tabs every 4-6 hours as needed. Do not exceed a dose of 3200 mg per day. Apply ice to the elbow as needed. Follow-up with your primary care provider as needed. Contact orthopedics to schedule follow-up regarding your elbow pain. Problem Qualifiers Primary Impression: Elbow pain Laterality: right Qualified Codes: M25.521 - Pain in right elbow Additional Impression: Headache Headache type: unspecified Headache chronicity pattern: unspecified pattern Intractability: not intractable Qualified Codes: R51 - Headache
--- NOTE | 2017-06-13 20:30 | DIAGNOSTIC IMAGING REPORT ---
R ELBOW MIN 3 VIEWS ROUTINE CLINICAL HISTORY: Right elbow pain COMPARISON: None. DISCUSSION: The fat pads are not displaced. No fractures or dislocations are visualized. There are no erosive or destructive changes. IMPRESSION: 1. No acute fractures 2. No evidence of erosive disease Electronically signed by: Js Hauser M.D. 06/13/2017 8:29 PM Dictated Date/Time: 06/13/2017 8:28 PM
[2017-06-13 21:00] VITALS: BP 179/99; PULSE 98; O2SAT 97
== END 2017-06-13 21:01 | disposition home or self-care (01) ==
LOC: C.EDB 19:30 → C.EDD 21:01
DX: M25.521 Pain in right elbow (principal); G43.909 Migraine, unspecified, not intractable, without status migrainosus; F32.9 Major depressive disorder, single episode, unspecified; I10 Essential (primary) hypertension; Z79.84 Long term (current) use of oral hypoglycemic drugs; Z79.1 Long term (current) use of non-steroidal anti-inflammatories (NSAID); Z82.49 Family history of ischemic heart disease and other diseases of the circulatory system; Z82.0 Family history of epilepsy and other diseases of the nervous system

== ENCOUNTER 2017-08-16 17:19 | Emergency (ER) | payer OTHER ==
[~2017-08-16] VITALS: Ht 152.4 cm; Wt 101.7 kg
[2017-08-16 17:24] VITALS: TEMP 36.7; Ht 152.4 cm; Wt 101.7 kg
--- NOTE | 2017-08-16 17:56 | DIAGNOSTIC IMAGING REPORT ---
CHEST ONE VIEW PORTABLE HISTORY: Atypical Chest Pain COMPARISON: Chest 02/03/2017. FINDINGS: The lungs are clear. Cardiac silhouette is normal in size. No pleural effusions. No pneumothorax. IMPRESSION: No acute process. Electronically signed by: Neto Wolf M.D. 08/16/2017 5:54 PM Dictated Date/Time: 08/16/2017 5:53 PM
[2017-08-16] MEDS ORDERED: LISI20TA3 PO (18:01)
[2017-08-16 18:07] LABS: BASO % 0.3 %; BASO ABS # 0.03 K/uL (0-0.2); EOS % 2.4 %; EOS ABS # 0.21 K/uL (0-0.5); HEMATOCRIT 42.6 % (37-47); HEMOGLOBIN 14.8 g/dL (12.0-16.0); IG# 0.02 K/uL (0.00-0.02); LYMPH % 28.8 %; LYMPH ABS # 2.53 K/uL (1.2-3.4); MEAN CELL VOLUME 83.9 fL (80-100); MEAN CORPUSCULAR HEMOGLOBIN 29.1 pg (25-34); MEAN CORPUSCULAR HGB CONC 34.7 g/dl (32-36); MEAN PLATELET VOLUME 9.3 fL (7.4-10.4); MONO % 8.9 %; MONO ABS # 0.78 K/uL (0.11-0.59); NEUT % 59.4 %; PLATELET COUNT 270 K/uL (130-400); RED CELL DISTRIBUTION WIDTH CV 12.2 % (11.5-14.5); RED CELL DISTRIBUTION WIDTH SD 37.6 fL (36.4-46.3); WHITE BLOOD COUNT 8.77 K/uL (4.8-10.8)
[2017-08-16] MEDS ORDERED: SODIUM CHLORIDE 0.9% 1000ML 1,000 ML IV STA (18:11)
[2017-08-16] MEDS ORDERED: HYDROCODONE/HOMATROPINE SYRUP 5MG/1.5MG 5ML UDP PO STA (18:11)
[2017-08-16] MEDS ORDERED: BENZONATATE 100MG CAP PO ONE (18:15)
[2017-08-16 18:32] LABS: BLOOD UREA NITROGEN 11 mg/dl (7-18); CALCIUM 9.1 mg/dl (8.5-10.1); CARBON DIOXIDE 23 mmol/L (21-32); CREATININE 0.89 mg/dl (0.60-1.20); GLUCOSE 206 mg/dl (70-99); POTASSIUM 3.8 mmol/L (3.5-5.1); SODIUM 133 mmol/L (136-145)
[2017-08-16 18:37] LABS: CKMB 0.6 ng/ml (0.5-3.6)
[2017-08-16 19:36] LABS: INFLUENZA B ANTIGEN Neg for Influ B (NEG)
[2017-08-16] MEDS ORDERED: PRED20TA PO (19:43)
[2017-08-16] MEDS ORDERED: DOXY100C PO (19:43)
[2017-08-16] MEDS ORDERED: BENZ100C18 PO (19:43)
[2017-08-16] MEDS ORDERED: DOXYCYCLINE HYCLATE 100 MG CAP PO ONE (19:45)
--- NOTE | 2017-08-16 20:03 | EMERGENCY ROOM VISIT NOTE ---
History Report prepared by Christian: Laura Dc Under the Supervision of: Em NuñezO. First contact with patient: 17:32 Chief Complaint: PAIN (GENERALIZED) Stated Complaint: CHEST PAIN, BRIGHT, EARS HURT History of Present Illness The patient is a 41 year old female who presents to the Emergency Room with complaints of a worsening illness for the past 3 days. She reports a sore throat , headache, left ear pain, and a productive cough with greenish sputum. She also reports chest pain that is worsened with coughing. She describes her pain as sharp and rates it as a 7/10 in severity. She took naproxen today for her symptoms and states that it has not helped. The patient does note that her son was recently sick with a URI. She did not have a flu shot this year. She has a personal history of DM, HTN, and asthma. Pt denies change in vision, fevers, shortness of breath, nausea, vomiting, diarrhea, pain with urination, and melena. She denies any personal of family history of heart disease. Source of History: patient Onset: 3 days ago Position: other (global) Symptom Intensity: 7/10 Quality: other (illness) Timing: worsening Modifying Factors (Worsening): other (coughing) Associated Symptoms: + headache, + sorethroat, + cough, + chest pain, No fevers, No SOB, No nausea, No vomiting, No melena, No diarrhea, No urinary symptoms Note: Pt notes left ear pain. Review of Systems See HPI for pertinent positives & negatives. A total of 10 systems reviewed and were otherwise negative. Past Medical & Surgical Medical Problems: (1) Depression (2) Headache (3) HTN (hypertension) (4) HTN (hypertension) (5) Pneumonia Family History Hypertension Seizures Social History Smoking Status: Never Smoker Alcohol Use: none Marital Status: Housing Status: lives with family Occupation Status: disabled Current/Historical Medications Scheduled Benzonatate (Tessalon Perles), 100 MG PO TID Bupropion (Wellbutrin Sr), 200 MG PO QAM Doxycycline Hyclate (Vibramycin), 100 MG PO BID Hydroxyzine Pamoate (Vistaril), 25 MG PO TID Lisinopril (Prinivil), 20 MG PO DAILY Metformin Hcl (Glucophage), 1,000 MG PO AMPM Metoprolol Tartrate (Lopressor) (Lopressor), 50 MG PO BID Naproxen (Naprosyn), 500 MG PO BID Oxcarbazepine (Trileptal), 300 MG PO BID Prednisone (Prednisone), 1 TAB PO DAILY Trazodone Hcl (Trazodone), 100 MG PO HS Scheduled PRN Albuterol Hfa (Ventolin Hfa), 2 PUFFS INH Q4 PRN for Shortness of Breath Ibuprofen (Motrin), 800 MG PO Q8 PRN for Headache Mometasone Furoate-Formoterol (Dulera 200/5 Mcg), 2 PUFFS INH BID PRN for Shortness of Breath Allergies Coded Allergies: Azithromycin (Verified Allergy, Unknown, 08/16/17) Propoxyphene (Verified Allergy, Unknown, 08/16/17) Physical Exam Vital Signs Date Time Temp Pulse Resp B/P (MAP) Pulse Ox O2 Delivery O2 Flow Rate FiO2 08/16/17 18:51 104 18 167/110 95 08/16/17 17:24 36.7 118 17 167/103 95 Room Air Physical Exam GENERAL: Sitting up in bed, alert, well appearing, well nourished, no distress, non-toxic, dry non-productive cough, talking in full sentences. EYE EXAM: normal conjunctiva. OROPHARYNX: no exudate, no erythema, lips, buccal mucosa, and tongue normal and mucous membranes are moist NECK: supple, no nuchal rigidity, no adenopathy, non-tender, no JVD. LUNGS: Clear to auscultation. Normal chest wall mechanics HEART: no murmurs, S1 normal and S2 normal CHEST: Acute reproducible anterior chest wall pain - same as stated complaint. ABDOMEN: abdomen soft, non-tender, normo-active bowel sounds, no masses, no rebound or guarding. BACK: Back is symmetrical on inspection and there is no deformity, no midline tenderness, no CVA tenderness. SKIN: no rashes and no bruising UPPER EXTREMITIES: upper extremities are grossly normal. LOWER EXTREMITIES: No pitting edema. Calves equal bilaterally. NEURO EXAM: Normal sensorium, cranial nerves II-XII grossly intact, normal speech, no gross weakness of arms, no gross weakness of legs. Medical Decision & Procedures ER Provider Diagnostic Interpretation: Radiology results as stated below per my review and the radiologist's interpretation: CHEST ONE VIEW PORTABLE HISTORY: Atypical Chest Pain COMPARISON: Chest 02/03/2017. FINDINGS: The lungs are clear. Cardiac silhouette is normal in size. No pleural effusions. No pneumothorax. IMPRESSION: No acute process. Electronically signed by: Neto Wolf M.D. 08/16/2017 5:54 PM Dictated Date/Time: 08/16/2017 5:53 PM Laboratory Results 08/16/17 17:50 Red Blood Count 5.08, Mean Corpuscular Volume 83.9, Mean Corpuscular Hemoglobin 29.1, Mean Corpuscular Hemoglobin Concent 34.7, Mean Platelet Volume 9.3, Neutrophils (%) (Auto) 59.4, Lymphocytes (%) (Auto) 28.8, Monocytes (%) (Auto) 8.9, Eosinophils (%) (Auto) 2.4, Basophils (%) (Auto) 0.3, Neutrophils # (Auto) 5.20, Lymphocytes # (Auto) 2.53, Monocytes # (Auto) 0.78, Eosinophils # (Auto) 0.21, Basophils # (Auto) 0.03 08/16/17 17:50 Test 08/16/17 17:50 08/16/17 18:45 White Blood Count 8.77 K/uL (4.8-10.8) Red Blood Count 5.08 M/uL (4.2-5.4) Hemoglobin 14.8 g/dL (12.0-16.0) Hematocrit 42.6 % (37-47) Mean Corpuscular Volume 83.9 fL (80-100) Mean Corpuscular Hemoglobin 29.1 pg (25-34) Mean Corpuscular Hemoglobin Concent 34.7 g/dl (32-36) Platelet Count 270 K/uL (130-400) Mean Platelet Volume 9.3 fL (7.4-10.4) Neutrophils (%) (Auto) 59.4 % Lymphocytes (%) (Auto) 28.8 % Monocytes (%) (Auto) 8.9 % Eosinophils (%) (Auto) 2.4 % Basophils (%) (Auto) 0.3 % Neutrophils # (Auto) 5.20 K/uL (1.4-6.5) Lymphocytes # (Auto) 2.53 K/uL (1.2-3.4) Monocytes # (Auto) 0.78 K/uL (0.11-0.59) Eosinophils # (Auto) 0.21 K/uL (0-0.5) Basophils # (Auto) 0.03 K/uL (0-0.2) RDW Standard Deviation 37.6 fL (36.4-46.3) RDW Coefficient of Variation 12.2 % (11.5-14.5) Immature Granulocyte % (Auto) 0.2 % Immature Granulocyte # (Auto) 0.02 K/uL (0.00-0.02) Anion Gap 11.0 mmol/L (3-11) Est Creatinine Clear Calc Drug Dose 87.5 ml/min Estimated GFR () 92.0 Estimated GFR (Non- 79.4 BUN/Creatinine Ratio 11.8 (10-20) Calcium Level 9.1 mg/dl (8.5-10.1) Total Creatine Kinase 62 U/L (26-192) Creatine Kinase MB 0.6 ng/ml (0.5-3.6) Creatine Kinase MB Ratio 1.0 (0-3.0) Troponin I < 0.015 ng/ml (0-0.045) Influenza Type A Antigen Neg for Influ A (NEG) Influenza Type B Antigen Neg for Influ B (NEG) Laboratory results per my review. Medications Administered Medications (Trade) Dose Ordered Sig/Neema Route Start Time Stop Time Status Last Admin Dose Admin Hydrocodone Bit/ Homatropine Methylb (Hycodan Syrup) 5 ml NOW STAT PO 08/16/17 18:11 08/16/17 18:12 DC 08/16/17 18:55 5 ML Sodium Chloride 1,000 ml @ 999 mls/hr Q1H1M STAT IV 08/16/17 18:11 08/16/17 19:11 DC 08/16/17 18:55 999 MLS/HR Benzonatate (Tessalon Perles Cap) 100 mg NOW ONCE PO 08/16/17 18:15 08/16/17 18:16 DC 08/16/17 18:55 100 MG ECG Per My Interpretation Indication: SOB/dyspnea Rate (beats per minute): 108 Rhythm: sinus tachycardia Findings: no ectopy, other (normal axis; t-wave flattening in lateral leads) Comparison ECG Date: 02/03/17 Change: no significant change ED Course ED COURSE: Vital signs were reviewed and showed hypertensive, tachycardic. The patients medical record was reviewed The above diagnostic studies were performed and reviewed. ED treatments and interventions as stated above. 1731: The patient was evaluated in room B8. A complete history and physical examination was performed. 1810: NSS 1000 ml @ 999 mls/hr IV, Hycodan Syrup 5 ml PO 1814: Benzonatate 100 mg PO 1855: At this time I updated the patient. She is doing well. 1999: Upon reevaluation, the patient is feeling better and resting comfortably. I discussed my findings with the patient and she understands and agrees with the treatment plan. Based on the patients age, coexisting illnesses, exam and lab findings the decision to treat as an outpatient was made. The patient remained stable while under my care. The patient appeared well at the time of discharge. Medical Decision Differential diagnoses includes but is not limited to pneumonia, bronchitis, COPD/Asthma exacerbation, pneumothorax, pulmonary embolism, congestive heart failure, acute coronary syndrome. Patient is a 41-year-old female who presents to ER for a productive cough, sore throat, congestion and runny nose. Symptoms have been present since this past Tuesday. She also has a reproducible posterior headache. She does also complain of chest pain which is completely reproducible on exam and only present with coughing. EKG is unremarkable. I do not believe that this is ischemic. Patient does have a history of asthma. She was given steroids and doxycycline. Influenza was negative. Chest x-ray without infiltrate. CBC and BMP was unremarkable. Patient was feeling significantly better following the Hycodan which prevented coughing. She was discharged to follow-up with PCP as an outpatient. I do favor this is all consistent with a viral URI. Discussed with Pt concerning signs and symptoms to watch out for. Pt was instructed to follow up with their PCP and discussed with the patient their option to return to the ED at anytime for persistent or worsening symptoms. The appropriate anticipatory guidance and out-patient management, including indications for return to the emergency department, were explained at length to the patient and understood. Medication Reconcilliation Current Medication List: was personally reviewed by me Blood Pressure Screening Patient's blood pressure: Elevated blood pressure Blood pressure disposition: Elevated BP felt to be situational Impression Primary Impression: Bronchitis Scribe Attestation The scribe's documentation has been prepared under my direction and personally reviewed by me in its entirety. I confirm that the note above accurately reflects all work, treatment, procedures, and medical decision making performed by me. Departure Information Dispostion Home / Self-Care Prescriptions Doxycycline Hyclate (VIBRAMYCIN) 100 Mg Cap 100 MG PO BID for 7 Days, #14 CAP Prov: Tunde Zavala, DO 08/16/17 Prednisone (Prednisone) 20 Mg Tab 1 TAB PO DAILY for 5 Days, #5 TAB Prov: Tunde Zavala, DO 08/16/17 Benzonatate (TESSALON PERLES) 100 Mg Cap 100 MG PO TID, #30 CAP Prov: Tunde Zavala, DO 08/16/17 Referrals Warren White M.D. (PCP) Forms HOME CARE DOCUMENTATION FORM, IMPORTANT VISIT INFORMATION, WORK / SCHOOL INSTRUCTIONS Patient Instructions Bronchitis Acute, My [facility] Additional Instructions Please follow up with your primary care doctor with in the next 24 hours. Any worsening of your symptoms, please return to the ED immediately. This includes any fevers greater than 100.4, worsening pain, chest pain, shortness breath, persistent nausea, vomiting, unable to eat or drink, or any other concerning signs or symptoms from your standpoint. Please take Tylenol or Motrin as needed for fevers. Please follow-up with your PCP as stated above.
[2017-08-16 20:19] VITALS: BP 165/111; PULSE 97; O2SAT 96
== END 2017-08-16 20:20 | disposition home or self-care (01) ==
LOC: C.EDB 17:20
DX: J40 Bronchitis, not specified as acute or chronic (principal); F32.9 Major depressive disorder, single episode, unspecified; I10 Essential (primary) hypertension; Z87.01 Personal history of pneumonia (recurrent); E11.9 Type 2 diabetes mellitus without complications; J45.909 Unspecified asthma, uncomplicated; Z79.899 Other long term (current) drug therapy

== ENCOUNTER 2017-09-19 20:16 | Emergency (ER) | payer OTHER ==
[~2017-09-19] VITALS: Ht 152.4 cm; Wt 98.9 kg
[~2017-09-19 20:16] MED LIST changes: +LISI20TA3 PO
[2017-09-19 20:22] VITALS: TEMP 36.7; Ht 152.4 cm; Wt 98.9 kg
[2017-09-19] MEDS ORDERED: IBUPROFEN 600 MG TAB PO STA (20:40)
--- NOTE | 2017-09-19 22:00 | EMERGENCY ROOM VISIT NOTE ---
History First contact with patient: 20:35 Chief Complaint: KNEEPAIN Stated Complaint: LEFT KNEE History of Present Illness The patient is a 41 year old female who presents to the Emergency Room via private vehicle accompanied by 2 females with complaints of "left knee pain". The patient states that earlier today she went on a walk, after returning home developed pain in the medial aspect of the left knee that she rates as an 8/10. She denies any history of clots. The pain is worse with movement. Review of Systems A complete 6-point Review of Systems was discussed with the patient, with pertinent positives and negatives listed in the History of Present Illness. All remaining Review of Systems questions can be considered negative unless otherwise specified. Past Medical/Surgical History Medical Problems: (1) Depression (2) Headache (3) HTN (hypertension) (4) HTN (hypertension) (5) Pneumonia Family History Hypertension Seizures Social History Smoking Status: Never Smoker Alcohol Use: none Marital Status: Housing Status: lives with family Occupation Status: disabled Current/Historical Medications Scheduled Bupropion (Wellbutrin Sr), 200 MG PO QAM Hydroxyzine Pamoate (Vistaril), 25 MG PO TID Lisinopril (Prinivil), 20 MG PO DAILY Metformin Hcl (Glucophage), 1,000 MG PO AMPM Metoprolol Tartrate (Lopressor) (Lopressor), 50 MG PO BID Naproxen (Naprosyn), 500 MG PO BID Oxcarbazepine (Trileptal), 300 MG PO BID Trazodone Hcl (Trazodone), 100 MG PO HS Scheduled PRN Albuterol Hfa (Ventolin Hfa), 2 PUFFS INH Q4 PRN for Shortness of Breath Ibuprofen (Motrin), 800 MG PO Q8 PRN for Headache Mometasone Furoate-Formoterol (Dulera 200/5 Mcg), 2 PUFFS INH BID PRN for Shortness of Breath Physical Exam Vital Signs Date Time Temp Pulse Resp B/P (MAP) Pulse Ox O2 Delivery O2 Flow Rate FiO2 09/19/17 22:26 93 18 216/133 93 09/19/17 20:22 36.7 103 16 169/108 95 Room Air Physical Exam VITAL SIGNS - Vital signs and nursing notes were reviewed. Hypertensive. GENERAL -41-year-old female appearing her stated age who is in no acute distress. Communicates well with provider and answers questions appropriately. SKIN - Without rashes. There is erythema overlying both left anterior knees consistent with a sunburn. EXTREMITIES - No clubbing or peripheral cyanosis. No pretibial edema present. There is tenderness to palpation overlying the patient's left medial knee joint. Patient refuses range of motion. No popliteal or calf tenderness. No laxity. Excellent distal pulses. Medical Decision & Procedures ER Provider Diagnostic Interpretation: LEFT KNEE 2 VIEWS HISTORY: L KNEE PAIN COMPARISON: None. FINDINGS: There is no fracture or dislocation. Soft tissues are unremarkable. Trace knee effusion. Cartilage spaces are maintained for age. Tiny marginal osteophytes at the medial compartment. IMPRESSION: No fracture or dislocation within the left knee. Trace left knee effusion. Electronically signed by: Neto Wolf M.D. 09/19/2017 10:14 PM Dictated Date/Time: 09/19/2017 10:13 PM Medications Administered Medications (Trade) Dose Ordered Sig/Neema Route Start Time Stop Time Status Last Admin Dose Admin Ibuprofen (Motrin Tab) 600 mg NOW STAT PO 09/19/17 20:40 09/19/17 20:42 DC 09/19/17 20:51 600 MG Medical Decision Patient was seen and evaluated as above in D04. Review was performed of nursing notes and vital signs. After obtaining a thorough history and physical examination the above work up was performed. She has L knee pain. X-ray reveals trace knee effusion. She may have a meniscal injury. Left knee brace and crutches were given. She is to follow with orthopedics by calling them first thing tomorrow to schedule follow-up. She is to return with worsening. The patient was educated upon management, had questions answered prior to discharge, and was discharged home in good condition. Additionally, the patient was found to be hypertensive. She notes that she recently began a new medication metoprolol extended release. I did discuss with her how her blood pressure being elevated puts her at risk for serious life- threatening events. She is to call her family doctor to schedule follow-up. The left knee certainly could also be contributing to this number. In the evaluation and treatment of this patient, the following differential diagnoses were considered: Patellar Fracture, Tibial Plateau Fracture, Distal Femur Fracture, ACL Injury, PCL Injury, Collateral Ligament Injury, Pes Anserine Bursitis, Maisonneuve Fracture. Impression Primary Impression: Knee pain Departure Information Dispostion Home / Self-Care Condition GOOD Referrals Warren White M.D. (PCP) Neeraj Wallace M.D. Patient Instructions My [facility] Additional Instructions You have been treated in the Emergency Department for Knee Pain. For pain control, you can use the following [id number] medicines: - Regular strength (325mg/tab) Tylenol (acetaminophen) 2 tabs every 4-6 hours as needed. Do not exceed 12 tablets in a 24 hour period. Avoid taking more than 3 grams (3000 mg) of Tylenol per day. This includes any other sources of acetaminophen you may take on a regular basis. - Regular strength (200 mg/tab) Advil (ibuprofen) 1-2 tabs every 4-6 hours as needed. Do not exceed a dose of 3200 mg per day. If this is a recent injury (<24 hrs), ice can be applied to the area of pain for the first 3 days to help decrease pain and inflammation. Ice massages can be performed by freezing water in a paper cup, peeling back the cup to expose the ice and then massaging over the affected area. You have been provided the number for an Orthopaedic Surgeon. You should call this number as soon as possible to establish a follow-up visit from today's Emergency Department visit. Keep the knee brace in place until cleared by Orthopedics. Use the crutches you have been provided to keep ALL weight off of the knee until weight bearing is tolerable. Return to the Emergency Department if your current symptoms worsen despite treatment course outlined above. Problem Qualifiers Primary Impression: Knee pain Chronicity: acute Laterality: left Qualified Codes: M25.562 - Pain in left knee
--- NOTE | 2017-09-19 22:15 | DIAGNOSTIC IMAGING REPORT ---
LEFT KNEE 2 VIEWS HISTORY: L KNEE PAIN COMPARISON: None. FINDINGS: There is no fracture or dislocation. Soft tissues are unremarkable. Trace knee effusion. Cartilage spaces are maintained for age. Tiny marginal osteophytes at the medial compartment. IMPRESSION: No fracture or dislocation within the left knee. Trace left knee effusion. Electronically signed by: Neto Wolf M.D. 09/19/2017 10:14 PM Dictated Date/Time: 09/19/2017 10:13 PM
[2017-09-19 22:26] VITALS: BP 216/133; PULSE 93; O2SAT 93
== END 2017-09-19 22:15 | disposition home or self-care (01) ==
LOC: C.EDB 20:16 → C.EDD 22:15
DX: M25.562 Pain in left knee (principal); I10 Essential (primary) hypertension; F32.9 Major depressive disorder, single episode, unspecified; Z87.01 Personal history of pneumonia (recurrent); Z82.49 Family history of ischemic heart disease and other diseases of the circulatory system; Z82.0 Family history of epilepsy and other diseases of the nervous system; Z79.899 Other long term (current) drug therapy

== ENCOUNTER 2017-10-06 18:34 | Emergency (ER) | payer OTHER ==
[~2017-10-06] VITALS: Ht 152.4 cm; Wt 99.7 kg
[2017-10-06 18:42] VITALS: TEMP 36.8; Ht 152.4 cm; Wt 99.7 kg
[2017-10-06] MEDS ORDERED: KETOROLAC TROMETHAMINE 30 MG/ML VIAL IV STA (18:52)
[2017-10-06] MEDS ORDERED: ALBUT/IPRATROP 3MG/0.5MG NEB 3 ML VIAL INH STA (18:52)
[2017-10-06] MEDS ORDERED: METOCLOPRAMIDE HCL INJ 5 MG/ML 2 ML VIAL IV STA (18:52)
[2017-10-06] MEDS ORDERED: DiphenhydrAMINE HCL 50 MG/ML VIAL IV STA (18:52)
[2017-10-06] MEDS ORDERED: DEXAMETHASONE **PF** INJ 10 MG/ML VIAL IV ONE (19:00)
--- NOTE | 2017-10-06 19:26 | EMERGENCY ROOM VISIT NOTE ---
History Report prepared by Christian: Jairon Dean Under the Supervision of: Dr. Zak Morris M.D. First contact with patient: 18:51 Chief Complaint: HEADACHE Stated Complaint: HEADACHE CHEST PAIN,BACK PAIN History of Present Illness The patient is a 41 year old female who presents to the Emergency Room with complaints of a constant headache that began yesterday. She states that headache "starts in the back of her head and radiates to her forehead". Patient adds that she chest pain, back pain, bilateral ear pain, shortness of breath, and a productive cough. She states she coughs up "green stuff". She states that the symptoms have been intermittent for the past 2 months. She denies a history of similar symptoms. She states that she called her doctor who put her on Augmentin, which has not relieved the symptoms. Patient states that she used to smoke but does not currently. Pertinent past medical history includes migraines , arthritis, and high blood pressure. Patient denies fevers, diarrhea, and urinary symptoms. Source of History: patient Onset: yesterday Position: head, ear (bilateral), chest, back Timing: constant Associated Symptoms: + cough, + chest pain, + SOB, + back pain, No fevers, No diarrhea, No urinary symptoms Review of Systems See HPI for pertinent positives and negatives. A total of ten systems were reviewed and were otherwise negative. Past Medical & Surgical Medical Problems: (1) Depression (2) Headache (3) HTN (hypertension) (4) HTN (hypertension) (5) Pneumonia Family History Hypertension Seizures Social History Smoking Status: Former Smoker Alcohol Use: none Marital Status: Housing Status: lives with family Occupation Status: disabled Current/Historical Medications Scheduled Bupropion (Wellbutrin Sr), 200 MG PO QAM Hydroxyzine Pamoate (Vistaril), 25 MG PO TID Lisinopril (Prinivil), 20 MG PO DAILY Metformin Hcl (Glucophage), 1,000 MG PO AMPM Metoprolol Succ (Toprol Xl) (Toprol-Xl ), 100 MG PO DAILY Naproxen (Naprosyn), 500 MG PO BID Oxcarbazepine (Trileptal), 300 MG PO BID Prednisone (Prednisone), 3 TAB PO DAILY Trazodone Hcl (Trazodone), 100 MG PO HS Scheduled PRN Albuterol Hfa (Ventolin Hfa), 2 PUFFS INH Q4 PRN for Shortness of Breath Ibuprofen (Motrin), 800 MG PO Q8 PRN for Headache Mometasone Furoate-Formoterol (Dulera 200/5 Mcg), 2 PUFFS INH BID PRN for Shortness of Breath Allergies Coded Allergies: Azithromycin (Verified Allergy, Unknown, 10/06/17) Propoxyphene (Verified Allergy, Unknown, 10/06/17) Physical Exam Vital Signs Date Time Temp Pulse Resp B/P (MAP) Pulse Ox O2 Delivery O2 Flow Rate FiO2 10/06/17 20:44 89 18 125/82 97 10/06/17 19:25 Room Air 10/06/17 18:42 36.8 94 22 152/98 95 Room Air Physical Exam GENERAL: Awake, alert, in no distress HENT: Normocephalic, atraumatic. Oropharynx unremarkable other than dry mucous membranes. EYES: Normal conjunctiva. Sclera non-icteric. NECK: Supple. No nuchal rigidity. FROM. No JVD. RESPIRATORY: Clear to auscultation. CARDIAC: Regular rate, normal rhythm. Extremities warm and well perfused. Pulses equal. ABDOMEN: Soft, non-distended. No tenderness to palpation. No rebound or guarding. No masses. RECTAL: Deferred. MUSCULOSKELETAL: Chest examination reveals no tenderness. The back is symmetrical on inspection without obvious abnormality. There is no CVA tenderness to palpation. No joint edema. LOWER EXTREMITIES: Calves are equal size bilaterally and non-tender. No edema. No discoloration. NEURO: Normal sensorium. No sensory or motor deficits noted. Normal cerebellar function with [id number], alternating palms, [id number] SKIN: No rash or jaundice noted. Medical Decision & Procedures ER Provider Diagnostic Interpretation: Radiology results as stated below per my review and radiologist interpretation: CHEST ONE VIEW PORTABLE HISTORY: 41 years-old Female CHEST PAIN acute atypical chest pain COMPARISON: Chest radiograph 08/16/2017 TECHNIQUE: Portable AP view of the chest FINDINGS: Cardiomediastinal and hilar silhouettes are within normal limits. No pneumothorax, pleural effusion, focal airspace consolidation or overt pulmonary edema. Degenerative changes of the shoulders and spine. The bones appear grossly intact. IMPRESSION: No acute process. The above report was generated using voice recognition software. It may contain grammatical, syntax or spelling errors. Electronically signed by: Alfonso Street M.D. 10/06/2017 8:08 PM Laboratory Results 10/06/17 19:10 Red Blood Count 4.87, Mean Corpuscular Volume 84.2, Mean Corpuscular Hemoglobin 28.7, Mean Corpuscular Hemoglobin Concent 34.1, Mean Platelet Volume 9.2, Neutrophils (%) (Auto) 49.3, Lymphocytes (%) (Auto) 40.1, Monocytes (%) (Auto) 7.6, Eosinophils (%) (Auto) 2.3, Basophils (%) (Auto) 0.5, Neutrophils # (Auto) 4.82, Lymphocytes # (Auto) 3.91, Monocytes # (Auto) 0.74, Eosinophils # (Auto) 0.22, Basophils # (Auto) 0.05 10/06/17 19:10 Test 10/06/17 19:10 White Blood Count 9.76 K/uL (4.8-10.8) Red Blood Count 4.87 M/uL (4.2-5.4) Hemoglobin 14.0 g/dL (12.0-16.0) Hematocrit 41.0 % (37-47) Mean Corpuscular Volume 84.2 fL (80-100) Mean Corpuscular Hemoglobin 28.7 pg (25-34) Mean Corpuscular Hemoglobin Concent 34.1 g/dl (32-36) Platelet Count 295 K/uL (130-400) Mean Platelet Volume 9.2 fL (7.4-10.4) Neutrophils (%) (Auto) 49.3 % Lymphocytes (%) (Auto) 40.1 % Monocytes (%) (Auto) 7.6 % Eosinophils (%) (Auto) 2.3 % Basophils (%) (Auto) 0.5 % Neutrophils # (Auto) 4.82 K/uL (1.4-6.5) Lymphocytes # (Auto) 3.91 K/uL (1.2-3.4) Monocytes # (Auto) 0.74 K/uL (0.11-0.59) Eosinophils # (Auto) 0.22 K/uL (0-0.5) Basophils # (Auto) 0.05 K/uL (0-0.2) RDW Standard Deviation 37.6 fL (36.4-46.3) RDW Coefficient of Variation 12.4 % (11.5-14.5) Immature Granulocyte % (Auto) 0.2 % Immature Granulocyte # (Auto) 0.02 K/uL (0.00-0.02) Anion Gap 9.0 mmol/L (3-11) Est Creatinine Clear Calc Drug Dose 96.2 ml/min Estimated GFR () 104.7 Estimated GFR (Non- 90.3 BUN/Creatinine Ratio 24.8 (10-20) Calcium Level 9.6 mg/dl (8.5-10.1) Total Bilirubin 0.3 mg/dl (0.2-1) Direct Bilirubin < 0.1 mg/dl (0-0.2) Aspartate Amino Transf (AST/SGOT) 26 U/L (15-37) Alanine Aminotransferase (ALT/SGPT) 38 U/L (12-78) Alkaline Phosphatase 77 U/L (45-117) Troponin I < 0.015 ng/ml (0-0.045) Total Protein 7.9 gm/dl (6.4-8.2) Albumin 3.7 gm/dl (3.4-5.0) Lipase 224 U/L (73-393) Laboratory results reviewed by me Medications Administered Medications (Trade) Dose Ordered Sig/Neema Route Start Time Stop Time Status Last Admin Dose Admin Albuterol/ Ipratropium (Duoneb) 3 ml NOW STAT INH 10/06/17 18:52 10/06/17 18:59 DC 10/06/17 19:16 3 ML Dexamethasone Sodium Phosphate (Dexamethasone Inj Pf) 10 mg NOW ONCE IV 10/06/17 19:00 10/06/17 19:01 DC 10/06/17 19:15 10 MG Ketorolac Tromethamine (Toradol Inj) 15 mg NOW STAT IV 10/06/17 18:52 10/06/17 18:59 DC 10/06/17 19:15 15 MG Metoclopramide HCl (Reglan Inj) 10 mg NOW STAT IV 10/06/17 18:52 10/06/17 18:59 DC 10/06/17 19:16 10 MG Diphenhydramine HCl (Benadryl Inj) 25 mg NOW STAT IV 10/06/17 18:52 10/06/17 18:59 DC 10/06/17 19:15 25 MG ECG Per My Interpretation Indication: chest pain Rate (beats per minute): 87 Rhythm: normal sinus Findings: no acute ischemic change, other (Normal axis) ED Course 1847: The patient was evaluated in room C11B. A complete history and physical exam was performed. 2016: I reevaluated the patient. She states that her headache has gone away and that she is feeling much better. Discussed results and discharge instructions. She verbalized understanding and agreement. The patient is ready for discharge. Medical Decision I reviewed the patient's past medical history, medications, and the nursing notes as described above. Differential diagnosis: Etiologies such as cardiac ischemia, aortic dissection, pulmonary embolism, pneumonia, pneumothorax, musculoskeletal, infections, pericarditis, myocarditis , esophageal rupture, gastrointestinal, as well as others were entertained. The patient is a 41-year-old woman who presents emergency department with migraine headache in setting of productive cough with chest, back pain per hpi. Of note, the patient has been seen in the ED for similar symptoms in the past with reassuring workup. On arrival, the patient is no acute distress, afebrile stable vital signs. EKG unremarkable. Labs unremarkable including WBC within normal limits. Troponin negative in the setting of greater than 6 hours of symptoms. Chest x-ray negative. Symptoms significantly improved after dexamethasone, DuoNeb, Reglan, Toradol, Benadryl. Symptoms most likely viral bronchitis provoking the patient's history of migraines. Plan for PCP follow- up. Findings and plan for follow-up reviewed with patient. Patient agreeable and d/c'd per discharge instructions. Medication Reconcilliation Current Medication List: was personally reviewed by me Blood Pressure Screening Patient's blood pressure: Elevated blood pressure Blood pressure disposition: Elevated BP felt to be situational Impression Primary Impression: Bronchitis Additional Impression: Migraine Scribe Attestation The scribe's documentation has been prepared under my direction and personally reviewed by me in its entirety. I confirm that the note above accurately reflects all work, treatment, procedures, and medical decision making performed by me. Departure Information Dispostion Home / Self-Care Prescriptions Prednisone (Prednisone) 20 Mg Tab 3 TAB PO DAILY for 4 Days, #12 TAB FOR 4 DAYS Prov: Zak Morris M.D. 10/06/17 Referrals Warren White M.D. (PCP) Patient Instructions ED Bronchitis Asthmatic, ED Headache Migraine, My [facility] Additional Instructions Please follow up with your primary care physician in the next 1-3 days for re- evaluation. Your symptoms are likely due to a viral bronchitis and associated mild dehydration provoking your migraines. Otherwise, your exam, EKG, chest xray, and lab results did not show signs of an emergent condition at this time. Acetaminophen or ibuprofen for pain and fevers as needed. Prednisone as directed. Saline nasal spray to help thin a clear mucus as needed. Albuterol every 4 hours for the next 48 hours and then as needed thereafter. Drink plenty of fluids to ensure hydration. Return to the emergency department for worsening symptoms as described in the accompanying instructions. Problem Qualifiers
[2017-10-06 19:28] LABS: BASO % 0.5 %; BASO ABS # 0.05 K/uL (0-0.2); EOS % 2.3 %; EOS ABS # 0.22 K/uL (0-0.5); IG# 0.02 K/uL (0.00-0.02); LYMPH % 40.1 %; LYMPH ABS # 3.91 K/uL (1.2-3.4); MEAN CELL VOLUME 84.2 fL (80-100); MEAN CORPUSCULAR HEMOGLOBIN 28.7 pg (25-34); MEAN CORPUSCULAR HGB CONC 34.1 g/dl (32-36); MEAN PLATELET VOLUME 9.2 fL (7.4-10.4); MONO % 7.6 %; MONO ABS # 0.74 K/uL (0.11-0.59); NEUT % 49.3 %; NEUT ABS # 4.82 K/uL (1.4-6.5); PLATELET COUNT 295 K/uL (130-400); RED CELL DISTRIBUTION WIDTH CV 12.4 % (11.5-14.5); RED CELL DISTRIBUTION WIDTH SD 37.6 fL (36.4-46.3); WHITE BLOOD COUNT 9.76 K/uL (4.8-10.8)
[2017-10-06 19:47] LABS: ALBUMIN 3.7 gm/dl (3.4-5.0); ALT/SGPT 38 U/L (12-78); AST/SGOT 26 U/L (15-37); BLOOD UREA NITROGEN 20 mg/dl (7-18); CALCIUM 9.6 mg/dl (8.5-10.1); CARBON DIOXIDE 26 mmol/L (21-32); GLUCOSE 162 mg/dl (70-99); LIPASE 224 U/L (73-393); SODIUM 136 mmol/L (136-145)
[2017-10-06 19:52] LABS: ALKALINE PHOSPHATASE 77 U/L (45-117); TOTAL PROTEIN 7.9 gm/dl (6.4-8.2)
[2017-10-06] MEDS ORDERED: METO100T44 PO (20:02)
--- NOTE | 2017-10-06 20:09 | DIAGNOSTIC IMAGING REPORT ---
CHEST ONE VIEW PORTABLE HISTORY: 41 years-old Female CHEST PAIN acute atypical chest pain COMPARISON: Chest radiograph 08/16/2017 TECHNIQUE: Portable AP view of the chest FINDINGS: Cardiomediastinal and hilar silhouettes are within normal limits. No pneumothorax, pleural effusion, focal airspace consolidation or overt pulmonary edema. Degenerative changes of the shoulders and spine. The bones appear grossly intact. IMPRESSION: No acute process. The above report was generated using voice recognition software. It may contain grammatical, syntax or spelling errors. Electronically signed by: Alfonso Street M.D. 10/06/2017 8:08 PM Dictated Date/Time: 10/06/2017 8:07 PM
[2017-10-06] MEDS ORDERED: PRED20TA PO (20:19)
[2017-10-06 20:44] VITALS: BP 125/82; PULSE 89; O2SAT 97
== END 2017-10-06 20:45 | disposition home or self-care (01) ==
LOC: C.EDB 18:35 → C.EDC 20:45
DX: J40 Bronchitis, not specified as acute or chronic (principal); G43.909 Migraine, unspecified, not intractable, without status migrainosus; I10 Essential (primary) hypertension; Z87.891 Personal history of nicotine dependence; Z88.8 Allergy status to other drugs, medicaments and biological substances